=== PATIENT | male | born 1985 | race Caucasian/White ===

== ENCOUNTER 2018-02-28 16:34 | Inpatient (IN) | payer OTHER ==
[2018-02-28 20:36] VITALS: BMI 29.1
--- NOTE | 2018-02-28 21:31 | HP ---
Admission ROS [facility] Chief Complaint: SEEKING REHAB SERVICES TO MAINTAIN SOBRIETY Allergies/Adverse Reactions: Allergies Allergy/AdvReac Type Severity Reaction Status Date / Time No Known Allergies Allergy Verified 02/28/18 20:57 History of Present Illness: 33 Y.O MALE WITH ALCOHOLISM HERE FOR REHAB SERVICES. CLIENT WAS REFERRED BY HIS [facility] AFTER ABSTAINING FROM ALCOHOL USE FOR THE PAST 7 DAYS. CLIENT REPORTS THIS IS HIS FIRST INPATIENT TXMENT. DENIES ANY SIGNIFICANT PERIOD OF CLEAN TIME. DENIES LEGALS Exam Limitations: No Limitations - Ebola screening Have you traveled outside of the country in the last 21 days: No Have you had contact with anyone from an Ebola affected area: No Have you been sick,other than usual withdrawal symptoms: No Do you have a fever: No - Review of Systems Constitutional: No Symptoms Reported EENT: reports: Dental Problems (MISSING TEETH), Other (CORERECTIVE LENSES) Respiratory: reports: No Symptoms reported Cardiac: reports: No Symptoms Reported GI: reports: No Symptoms Reported : reports: No Symptoms Reported Musculoskeletal: reports: No Symptoms Reported Integumentary: reports: No Symptoms Reported Neuro: reports: No Symptoms reported Endocrine: reports: No Symptoms Reported Hematology: reports: No Symptoms Reported Psychiatric: reports: Anxious, Depressed, other (BIPOLAR, NLD) Other Systems: Reviewed and Negative Patient History - Patient Medical History Hx Anemia: No Hx Asthma: No Hx Chronic Obstructive Pulmonary Disease (COPD): No Hx Cancer: No Hx Cardiac Disorders: No Hx Congestive Heart Failure: No Hx Hypertension: No Hx Hypercholesterolemia: No Hx Pacemaker: No HX Cerebrovascular Accident: No Hx Seizures: No Hx Dementia: No Hx Diabetes: No Hx Gastrointestinal Disorders: No Hx Liver Disease: No Hx Genitourinary Disorders: No Hx Sexually Transmitted Disorders: No Hx Renal Disease (ESRD): No Hx Thyroid Disease: No Hx Human Immunodeficiency Virus (HIV): No Hx Hepatitis C: No Hx Depression: Yes (NO MEDS) Hx Suicide Attempt: No Hx Bipolar Disorder: Yes (NO MEDS) Hx Schizophrenia: No Other Medical History: NON VERBAL LEARNING DISABILITY - Patient Surgical History Past Surgical History: Yes Other Surgical History: LOWER BACK CYST REMOVAL Anesthesia Reaction: No - PPD History Previous Implant?: Yes Documented Results: Negative w/o proof Implanted On Prior R Admission?: No PPD to be Administered?: Yes - Smoking Cessation Smoking history: Current every day smoker Have you smoked in the past 12 months: Yes Aproximately how many cigarettes per day: 20 Cigars Per Day: 0 Hx Chewing Tobacco Use: No Initiated information on smoking cessation: Yes 'Breaking Loose' booklet given: 02/28/18 - Substance & Tx. History Hx Alcohol Use: Yes Hx Substance Use: Yes Substance Use Type: Alcohol, Cocaine (NEGATIVE), Heroin (NEAGTIVE) Hx Substance Use Treatment: No - Substances Abused BEER Route: Oral Frequency: 3-6 times per week Amount used: 5-24OZ Age of first use: 17 Date of Last Use: 02/21/18 HEROIN Route: Injection Frequency: 1-3 times last 30 days Amount used: 1 BAG Age of first use: 26 Date of Last Use: 11/30/17 CRACK/COCAINE Route: Smoking Frequency: 1-3 times last 30 days Amount used: $100 Age of first use: 26 Date of Last Use: 11/30/17 Family Disease History - Family Disease History Family Disease History: Other: Father (RECOVERING ALCOHOLIC), Mother ( RECOVERING ALCOHOLIC) Admission Physical Exam [facility] - Vital Signs Vital Signs: Vital Signs - 24 hr 02/28/18 20:35 Temperature 96.0 F L Pulse Rate 79 Respiratory 18 Rate Blood Pressure 117/77 - Physical General Appearance: Yes: No Apparent Distress, Appropriately Dressed HEENTM: Yes: EOMI, Normal ENT Inspection, Normocephalic, Normal Voice, AUNDREA, Pharynx Normal Respiratory: Yes: Chest Non-Tender, Lungs Clear, Normal Breath Sounds, No Respiratory Distress, No Accessory Muscle Use Neck: Yes: No masses,lesions,Nodules, Supple, Trachea in good position Breast: Yes: Breast Exam Deferred Cardiology: Yes: Regular Rhythm, Regular Rate, S1, S2 Abdominal: Yes: Normal Bowel Sounds, Non Tender, Flat, Soft Genitourinary: Yes: Within Normal Limits Back: Yes: Normal Inspection Musculoskeletal: Yes: full range of Motion, Gait Steady Extremities: Yes: Normal Capillary Refill, Normal Range of Motion, Non-Tender Neurological: Yes: finishing manager II-XII NML intact, Fully Oriented, Alert, Motor Strength 5/5 Integumentary: Yes: Normal Color, Warm, Moist Lymphatic: Yes: Within Normal Limits - Diagnostic (1) Uncomplicated alcohol dependence Current Visit: Yes Status: Acute (2) Cocaine dependence, uncomplicated Current Visit: Yes Status: Acute (3) Uncomplicated opioid dependence Current Visit: Yes Status: Acute (4) Nicotine dependence Current Visit: Yes Status: Acute Cleared for Admission [facility] - Detox or Rehab Detox Regimen/Protocol: Not Applicable Claeared for Rehab Admission: Yes [facility] Breath Alcohol Content Breath Alcohol Content: 0 Urine Drug Screen - Results Drug Screen Negative: Yes Inpatient Rehab Admission - Initial Determination Are CD services needed?: Yes Free of communicable disease: Yes Not in need of hospitalization: Yes - Rehab Admission Criteria Previous failed treatment: Yes Poor recovery environment: Yes Comorbidities: Yes Lacks judgement: Yes Patient is meeting Inpatient Rehab admission criteria:: Yes
[2018-02-28] MEDS ORDERED: IBUPROFEN 400 MG TABLET (FP) PO PRN (21:44)
[2018-02-28] MEDS ORDERED: NICOTINE POLACRILEX 2 MG GUM BC PRN (21:44)
[2018-02-28] MEDS ORDERED: guaiFENesin/D-METHORPHAN HB 10 ML UNIT-DOSE CUPS PO PRN (21:44)
[2018-02-28] MEDS ORDERED: MAGNESIUM HYDROX 2400MG/30ML ORAL SUSPENSION 30 ML CUP PO PRN (21:44)
[2018-02-28] MEDS ORDERED: MAGNESIUM CITRATE 300 ML BOTTLE PO PRN (21:44)
[2018-02-28] MEDS ORDERED: LOPERAMIDE HCL 2 MG CAPSULE PO PRN (21:44)
[2018-02-28] MEDS ORDERED: ACETAMINOPHEN 325 MG TABLET (FP) PO PRN (21:44)
[2018-02-28] MEDS ORDERED: P-EPHED 60MG/TRIPROLIDI 2.5MG TABLET PO PRN (21:44)
[2018-02-28] MEDS ORDERED: hydrOXYzine PAMOATE 50 MG CAPSULE (FP) PO PRN (21:44)
[2018-02-28] MEDS ORDERED: MENTHOL/PHENOL 1 EACH UD MM PRN (21:44)
[2018-02-28] MEDS ORDERED: MAG HYDROX/AL HYDROX/SIMETH 30 ML UNIT-DOSE CUP PO PRN (21:44)
[2018-02-28] MEDS ORDERED: MELATONIN 5 MG TABLETS PO PRN (22:00)
[2018-02-28] MEDS: THIAMINE HCL 100 MG TABLET (FP) PO SCH (23:11)
--- NOTE | 2018-03-01 06:37 | HP ---
Psychiatrist Admission - Data Date of interview: 03/01/18 Admission source: [facility] Identifying data: This is the first [facility] admission for this 33 years old male, employed as [employer] in [place], [facility] Medical History: Significant for history of treatment for gonorrhea at age 24 and surgical procedure for removal of cyst lower back in 2007. Smokes cigarettes 1ppd Psychiatric History: Reports being diagnosed with ADHD while in middle school and prescribed medication. He has no recollection of medication name but he took it for approximately 2 years. Reports seeing a therapist from age 19 to 25. Approximately 6-7 years ago, on recommendation by his therapist, he saw psychiatrist who diagnosed him with Bipolar Disorder and prescribed him Wellbutrin. Told contract writer he stopped taking the medication after 2 months due to experiencing sexual side-effects. Denies previous psychiatric hospitalization or suicidal attempt. At present, reports feeling anxious and sleeping poorly Physical/Sexual Abuse/Trauma History: Denies history of emotional, physical or sexual as well as DV relationship. No service Additional Comment: Reports history of 2 previous misdemeanor arrests on charges of DWI. Claims that one of the charges wee dismissed Vital Signs: Vital Signs - 24 hr 02/28/18 03/01/18 20:35 03:30 Temperature 96.0 F L Pulse Rate 79 Respiratory 18 18 Rate Blood Pressure 117/77 Allergies/Adverse Reactions: Allergies Allergy/AdvReac Type Severity Reaction Status Date / Time No Known Allergies Allergy Verified 02/28/18 20:57 Date of last physical exam: 02/28/18 Concur with the findings of this exam: Yes - Substance Abuse/Tx History Hx Alcohol Use: Yes Hx Substance Use: Yes Substance Use Type: Alcohol (Started drinking alcohol at age 17, consumes 5x 24oz of beer 306 times weekly. Last drank on 02/21/18), Cocaine (Started smoking crack cocaine at age 26, consumes $100 worth 1-3 times in the last 30 days. Last smoked on 11/30/17), Heroin (Started using heroin at age 26, consumes one bag 1-3 times in the last 30 days. Last used on 11/30/17) Hx Substance Use Treatment: Yes (2 previous inpt rehab including [facility]) Mental Status Exam - Mental Status Exam Alert and Oriented to: Time, Place, Person Cognitive Function: Fair Patient Appearance: Disheveled Mood: Anxious Affect: Normal Range Patient Behavior: Cooperative Speech Pattern: Clear Voice Loudness: Normal Thought Process: Intact, Goal Oriented Thought Disorder: Not Present Hallucinations: Denies Suicidal Ideation: Denies Homicidal Ideation: Denies Insight/Judgement: Fair Sleep: Poorly Appetite: Good Muscle strength/Tone: Normal Gait/Station: Normal Psychiatric Findings - Problem List ([place] 1, 2,3) (1) Alcohol dependence Current Visit: Yes Status: Acute (2) Nicotine dependence Current Visit: Yes Status: Chronic Qualifiers: Nicotine product type: cigarettes Substance use status: uncomplicated Qualified Code(s): F17.210 - Nicotine dependence, cigarettes, uncomplicated (3) ADHD (attention deficit hyperactivity disorder) Current Visit: Yes Status: Chronic (4) Bipolar II disorder Current Visit: Yes Status: Ruled-out (5) Substance-induced anxiety disorder Current Visit: Yes Status: Acute (6) Substance-induced sleep disorder Current Visit: Yes Status: Acute - Initial Treatment Plan Initial Treatment Plan: 1) Start Belsomra 10 mg po HS prn for insomnia. 2) Monitor progress
[2018-03-01] MEDS: PRENATAL VITAMINS W/ FOLIC ACID TABLET (FP) PO SCH (10:10)
[2018-03-01] MEDS: NICOTINE 21 MG/24 HOURS TOPICAL PATCH TD SCH (10:11)
--- NOTE | 2018-03-01 13:10 | EKG ---
Test Reason : Blood Pressure : / mmHG Vent. Rate : 060 BPM Atrial Rate : 060 BPM P-R Int : 162 ms QRS Dur : 114 ms QT Int : 416 ms P-R-T Axes : 026 -16 014 degrees QTc Int : 416 ms NORMAL SINUS RHYTHM NORMAL ECG NO PREVIOUS ECGS AVAILABLE Confirmed by JAMAL GENAO, DEVIN ([id number]) on 03/01/2018 1:10:18 PM Referred By: Confirmed By:DEVIN BERRY MD
[2018-03-01 14:31] LABS: HEMOGLOBIN 14.4 GM/dL (11.7-16.9); MCH 29.5 pg (25.7-33.7); MCHC 32.7 g/dl (32.0-35.9); MEAN CELL VOLUME 90.2 fl (80-96); MEAN PLT VOLUME 9.9 fl (7.5-11.1); PLATELET COUNT 221 K/MM3 (134-434); RBC 4.88 M/mm3 (4.00-5.60); RDW 14.8 % (11.9-15.9); WHITE BLOOD COUNT 10.9 K/mm3 (4.0-10.0)
[2018-03-01 14:47] LABS: CHLORIDE 105 mmol/L (98-107); POTASSIUM 4.3 mmol/L (3.5-5.1); SODIUM 144 mmol/L (136-145)
[2018-03-01 14:56] LABS: ALBUMIN 4.2 g/dl (3.4-5.0); ALK PHOS 111 U/L (45-117); ANION GAP 10 (8-16); BILIRUBIN,TOTAL 0.6 mg/dL (0.2-1.0); BLOOD UREA NITROGEN 16 mg/dL (7-18); CALCIUM 9.4 mg/dL (8.5-10.1); CO2 29 mmol/L (21-32); GLUCOSE,RANDOM 91 mg/dL (74-106); SGOT/AST 32 U/L (15-37); SGPT/ALT 72 U/L (12-78); TOT PROT 7.5 g/dl (6.4-8.2)
[2018-03-01] MEDS ORDERED: TUBERCULIN PPD 5 TU/0.1ML VIAL ID ONE (15:56)
[2018-03-01 20:00] LABS: URINE APPEARANCE CLEAR; URINE BILIRUBIN NEGATIVE (<2.0 mg/dL); URINE BLOOD NEGATIVE (NEGATIVE); URINE COLOR YELLOW; URINE GLUCOSE (UA) NEGATIVE (NEGATIVE); URINE KETONE NEGATIVE (NEGATIVE); URINE LEUK ESTERASE NEGATIVE (NEGATIVE); URINE NITRITE NEGATIVE (NEGATIVE); URINE PROTEIN NEGATIVE (NEGATIVE); URINE UROBILINOGEN 4.0 E.U/dl mg/dL (0.2-1.0)
[2018-03-01] MEDS: THIAMINE HCL 100 MG TABLET (FP) PO SCH (21:09)
[2018-03-02] MEDS: SUVOREXANT 10 MG TABLET PO PRN ×2 (01:11→21:15)
[2018-03-02] MEDS: NICOTINE 21 MG/24 HOURS TOPICAL PATCH TD SCH (09:46)
[2018-03-02] MEDS: PRENATAL VITAMINS W/ FOLIC ACID TABLET (FP) PO SCH (09:46)
--- NOTE | 2018-03-02 11:33 | PN ---
S Progress Note Note: has ear piece right earlobe ,swelling with discharge from right earlobe Vital Signs Temperature 97.4 F L 03/02/18 06:36 Pulse Rate 78 03/02/18 06:36 Respiratory Rate 18 03/02/18 06:36 Blood Pressure 108/69 03/02/18 06:36 O2 Sat by Pulse Oximetry (%) infected right earlobe s/p earpiece with localized cellulitis treatment amoxiicillin 500 mgs po tid for 7 days bacitracin ointment bid close monitoring
[2018-03-02] MEDS ORDERED: PT OWN MED DRAWER 7, Y5N ONE (13:19)
[2018-03-02] MEDS: AMOXICILLIN 500 MG CAPSULE (FP) PO SCH ×2 (14:08→21:15)
[2018-03-02] MEDS: BACITRACIN 0.9 GM PACKET TP SCH ×2 (14:08→22:35)
[2018-03-02] MEDS: THIAMINE HCL 100 MG TABLET (FP) PO SCH (21:15)
[2018-03-03] MEDS: AMOXICILLIN 500 MG CAPSULE (FP) PO SCH ×3 (06:40→21:57)
[2018-03-03] MEDS: PRENATAL VITAMINS W/ FOLIC ACID TABLET (FP) PO SCH (09:55)
[2018-03-03] MEDS: NICOTINE 21 MG/24 HOURS TOPICAL PATCH TD SCH (09:55)
[2018-03-03] MEDS: BACITRACIN 0.9 GM PACKET TP SCH ×2 (09:55→21:57)
[2018-03-03] MEDS: THIAMINE HCL 100 MG TABLET (FP) PO SCH (21:57)
[2018-03-03] MEDS: SUVOREXANT 10 MG TABLET PO PRN (21:58)
[2018-03-04] MEDS: AMOXICILLIN 500 MG CAPSULE (FP) PO SCH ×3 (06:08→21:17)
[2018-03-04] MEDS: BACITRACIN 0.9 GM PACKET TP SCH ×2 (09:33→21:18)
[2018-03-04] MEDS: PRENATAL VITAMINS W/ FOLIC ACID TABLET (FP) PO SCH (09:33)
[2018-03-04] MEDS: NICOTINE 21 MG/24 HOURS TOPICAL PATCH TD SCH (09:34)
[2018-03-04] MEDS: THIAMINE HCL 100 MG TABLET (FP) PO SCH (21:17)
[2018-03-04] MEDS: SUVOREXANT 10 MG TABLET PO PRN (22:30)
[2018-03-05] MEDS: AMOXICILLIN 500 MG CAPSULE (FP) PO SCH ×3 (06:54→21:26)
[2018-03-05] MEDS: NICOTINE 21 MG/24 HOURS TOPICAL PATCH TD SCH (09:50)
[2018-03-05] MEDS: BACITRACIN 0.9 GM PACKET TP SCH ×2 (09:50→21:26)
[2018-03-05] MEDS: PRENATAL VITAMINS W/ FOLIC ACID TABLET (FP) PO SCH (09:50)
[2018-03-05] MEDS ORDERED: PT OWN MED DRAWER 7, Y5N ONE ×2 (13:20→19:43)
[2018-03-05] MEDS: SUVOREXANT 10 MG TABLET PO PRN (21:26)
[2018-03-05] MEDS: THIAMINE HCL 100 MG TABLET (FP) PO SCH (21:26)
[2018-03-06] MEDS: AMOXICILLIN 500 MG CAPSULE (FP) PO SCH ×2 (06:06→14:21)
[2018-03-06 06:43] VITALS: BP 104/60; PULSE 69; TEMP 97.3
[2018-03-06] MEDS: BACITRACIN 0.9 GM PACKET TP SCH (09:43)
[2018-03-06] MEDS: NICOTINE 21 MG/24 HOURS TOPICAL PATCH TD SCH (09:43)
[2018-03-06] MEDS: PRENATAL VITAMINS W/ FOLIC ACID TABLET (FP) PO SCH (09:43)
== END 2018-03-06 18:15 | disposition left against medical advice (07) | DRG 770 ==
LOC: YASAS 16:34 → Y3W 20:05
PROVIDERS: ADMIT Psychiatry & Neurology Psychiatry; ATTEND Psychiatry & Neurology Psychiatry
PROC: HZ42ZZZ Group Counseling for Substance Abuse Treatment, Cognitive-Behavioral (ICD-10-PCS; principal; 2018-02-28)
DX: F11.20 Opioid dependence, uncomplicated (principal); F10.20 Alcohol dependence, uncomplicated; F17.210 Nicotine dependence, cigarettes, uncomplicated; F19.280 Other psychoactive substance dependence with psychoactive substance-induced anxiety disorder; F19.282 Other psychoactive substance dependence with psychoactive substance-induced sleep disorder; F31.81 Bipolar II disorder; F90.9 Attention-deficit hyperactivity disorder, unspecified type; L03.90 Cellulitis, unspecified; Z86.19 Personal history of other infectious and parasitic diseases
CPT/HCPCS: 36415; 80053; 81003; 85027; 86593; 87389; 93005; 93010